=== PATIENT | female | born 1960 | race Caucasian/White ===

== ENCOUNTER → 2017-10-26 | Outpatient (REF) | payer OTHER ==
[2017-10-26 21:07] LABS: LIPASE 490 U/L (73-393)
[2017-10-26 21:07] LABS: AMYLASE 43 U/L (25-115)
== END ==
LOC: M LAB REF 17:54
DX: R10.84 Generalized abdominal pain (principal)
CPT/HCPCS: 82150

== ENCOUNTER 2018-02-27 13:39 | Emergency (ER) | payer OTHER ==
[2018-02-27] MEDS: ONDANSETRON 4MG/2ML VIAL (J2405) IV (15:08)
[2018-02-27] MEDS: LORazepam 2 MG/ML VIAL (J2060) IV (15:09)
[2018-02-27] MEDS: KETOROLAC 30 MG/ML VIAL (J1885) IV (15:09)
== END 2018-02-27 17:07 | disposition home or self-care (01) ==
LOC: M ED 13:39
DX: F41.1 Generalized anxiety disorder (principal); F32.9 Major depressive disorder, single episode, unspecified; F43.10 Post-traumatic stress disorder, unspecified; Z87.820 Personal history of traumatic brain injury; Z88.2 Allergy status to sulfonamides; Z88.5 Allergy status to narcotic agent; Z88.4 Allergy status to anesthetic agent; Z88.8 Allergy status to other drugs, medicaments and biological substances; Z88.0 Allergy status to penicillin
CPT/HCPCS: J2405

== ENCOUNTER → 2018-05-01 | Outpatient (REF) | payer OTHER ==
[2018-05-02 14:12] LABS: LIPASE 145 U/L (73-393)
== END ==
LOC: M LAB REF 12:52
DX: R79.89 Other specified abnormal findings of blood chemistry (principal)
CPT/HCPCS: 83690

== ENCOUNTER 2018-11-19 15:13 | Emergency (ER) | payer MEDICARE, OTHER ==
[~2018-11-19] VITALS: Ht 157.5 cm; Wt 75.0 kg
[2018-11-19] MEDS ORDERED: methylPREDNISolone INJ 125 MG/2 ML VIAL (J2930) IV ONE (15:45)
[2018-11-19] MEDS ORDERED: NS 1,000 ML IV ONE (15:45)
[2018-11-19] MEDS ORDERED: ALBUTEROL SULFATE 2.5 MG/0.5 ML INH NEB SOLN INH ONE (15:45)
[2018-11-19] MEDS ORDERED: IPRATROPIUM 0.5MG/ALBUTEROL 2.5MG INH SOL UD 3ML (DUONEB)(J7620) NEB ONE (15:45)
[2018-11-19 16:12] LABS: BASO # 0.1 10^3/uL (0.0-0.2); BASO % 0.7 % (0.0-1.0); EOS # 0.1 10^3/uL (0.0-0.50); EOS % 0.5 % (0.0-3.0); HEMATOCRIT 43.7 % (36.0-47.0); HEMOGLOBIN 14.8 g/dl (12.0-15.5); LYMPH # 1.7 10^3/uL (1.5-4.5); LYMPH % 14.4 % (24.0-44.0); MEAN CORPUSCULAR HEMOGLOBIN 31.4 pg (27.0-33.0); MEAN CORPUSCULAR HGB CONC 33.9 g/dl (32.0-36.5); MEAN CORPUSCULAR VOLUME 92.6 fl (80.0-96.0); MONO # 0.7 10^3/uL (0.0-0.8); MONO % 6.3 % (0.0-5.0); NEUTROPHILS % 77.7 % (36.0-66.0); PLATELET COUNT, AUTOMATED 237 10^3/uL (150-450); RED BLOOD COUNT 4.72 10^6/uL (4.00-5.40); WHITE BLOOD COUNT 11.6 10^3/uL (4.0-10.0)
--- NOTE | 2018-11-19 16:29 | REP ---
Clinical: Cough and dyspnea . Comparison: 12/06/2007 . Findings: The mediastinum and cardiac silhouette are stable and within normal limits for portable technique. The lung fenton demonstrate mild chronic-appearing basilar changes. Subtle atelectasis cannot definitively be excluded. No focal consolidation. No obvious effusion. No pneumothorax. Skeletal structures are intact. Impression: Mild chronic-appearing basilar changes. Subtle atelectasis cannot be excluded. No focal consolidation or effusion. Electronically Signed by Sony Castaneda MD 11/19/2018 04:22 P
[2018-11-19 16:54] LABS: ALBUMIN 3.9 GM/DL (3.2-5.2); ALT/SGPT 19 U/L (12-78); BILIRUBIN,DIRECT 0.2 MG/DL (0.0-0.2); BILIRUBIN,TOTAL 0.8 MG/DL (0.2-1.0); BLOOD UREA NITROGEN 17 MG/DL (7-18); CALCIUM LEVEL 9.7 MG/DL (8.5-10.1); CARBON DIOXIDE LEVEL 26 MEQ/L (21-32); CHLORIDE LEVEL 102 MEQ/L (98-107); CK-MB VALUE MASS < 1.0 NG/ML (<3.6); CPK CREATINE PHOSPHOKINASE 22 U/L (26-192); CREATININE FOR GFR 1.07 MG/DL (0.55-1.30); GLOMERULAR FILTRATION RATE 56.3 (>51); GLUCOSE, FASTING 92 MG/DL (70-100); MB/CK RELATIVE INDEX 4.55 (< OR =4); NT-PRO BNP 43 PG/ML (<125); POTASSIUM SERUM 3.8 MEQ/L (3.5-5.1); SODIUM LEVEL 137 MEQ/L (136-145); THYROID STIMULATING HORMONE 0.637 uIU/ML (0.358-3.740); THYROXINE (T4) 8.6 UG/DL (4.5-12.0); TOTAL PROTEIN 7.3 GM/DL (6.4-8.2); TROPONIN I < 0.02 NG/ML (< 0.10)
[2018-11-19] MEDS ORDERED: ISOVUE-370 76% 100ML VIAL (Q9967) As Ordered ONE (17:15)
--- NOTE | 2018-11-19 17:46 | REP ---
Clinical: Acute chest pain. Technique: Axial contrast enhanced images from the thoracic inlet to the upper abdomen using 100 ml Isovue 370 intravenous contrast material with coronal and sagittal re-formations. Findings: Satisfactory enhancement of the pulmonary vasculature is achieved and no filling defects are identified to suggest pulmonary embolus. Lung fenton demonstrate mild bibasilar atelectasis (left greater than right). No effusion. No pneumothorax. Tracheobronchial tree is patent. Mediastinum demonstrates normal thoracic aorta and heart/pericardium. No pericardial effusion. No significant adenopathy. Surrounding musculoskeletal structures without focal osseous abnormality. Limited upper abdomen demonstrates normal bilateral adrenal glands and evidence of prior cholecystectomy. Impression: No evidence for pulmonary embolus. Mild bibasilar atelectasis. Electronically Signed by Sony Castaneda MD 11/19/2018 05:36 P
[2018-11-19] MEDS ORDERED: MOXIFLOXACIN 400 MG TAB PO ONE (18:00)
[2018-11-19] MEDS ORDERED: IBUPROFEN 600 MG TAB PO ONE (18:00)
[2018-11-19] MEDS ORDERED: PROAAER10 INH (18:03)
[2018-11-19] MEDS ORDERED: PRED20TA PO (18:03)
[2018-11-19] MEDS ORDERED: MOXI1TAB PO (18:04)
--- NOTE | 2018-11-19 18:12 | REPVR ---
EXAM: US Duplex Left Lower Extremity Veins, Limited EXAM DATE/TIME: 11/19/2018 5:42 PM CLINICAL HISTORY: 58 years old, female; Pain; Leg, upper; Left TECHNIQUE: Imaging protocol: Real-time Duplex ultrasound of the Left Lower Extremity with 2-D munguia scale, color Doppler flow and spectral waveform analysis. Limited exam focused on the left lower extremity veins. COMPARISON: No relevant prior studies available. FINDINGS: Left deep veins: Unremarkable. The common femoral, femoral, popliteal and visualized calf veins are patent without thrombus. Normal compressibility, augmentation response and Doppler waveforms. Left superficial veins: Unremarkable. Saphenofemoral junction is patent without thrombus. Soft tissues: Unremarkable. IMPRESSION: No sonographic evidence of deep vein thrombosis. Electronically signed by: Sigifredo Rosenberg On 11/19/2018 18:12:46 PM
[2018-11-19 18:19] VITALS: BP 112/58
--- NOTE | 2018-11-19 19:48 | ECGEPIP ---
[facility] - ED Test Date: 2018-11-19 Pat Name: CHELSI SOTO Department: Room: - Gender: Female Anesthesia Resident: GONZALO : 1960 Requested By: Shamika Jaramillo Order Number: [id number] Reading MD: Shamika Jaramillo Measurements Intervals [place] Rate: 96 P: 49 MO: 173 QRS: 35 QRSD: 73 T: 33 QT: 323 QTc: 408 Interpretive Statements SINUS RHYTHM POSSIBLE LAE CW 02/27/18 RATE INCREASED Electronically Signed on 11-19-2018 19:48:13 EDT by Shamika Jaramillo
== END 2018-11-19 18:48 | disposition home or self-care (01) ==
LOC: M ED 15:13
DX: J20.9 Acute bronchitis, unspecified (principal); J01.90 Acute sinusitis, unspecified; Z87.820 Personal history of traumatic brain injury; F41.9 Anxiety disorder, unspecified; Z72.0 Tobacco use; Z88.0 Allergy status to penicillin; Z88.8 Allergy status to other drugs, medicaments and biological substances; Z88.5 Allergy status to narcotic agent; Z88.2 Allergy status to sulfonamides
CPT/HCPCS: 71045; 71275; 80048; 80076; 82550; 82553; 83605; 83880; 84436; 84443; 84484; 85025; 87040; 93005; 93041; 93971; 94640; 94760; 96361; 96374; 99285; J2930; Q9967

== ENCOUNTER → 2018-12-05 | Outpatient (REF) | payer MEDICARE ==
[~2018-12-05] MED LIST: MOXI1TAB PO; PRED20TA PO; PROAAER10 INH
[2018-12-07 00:06] LABS: Lyme Disease IgG/IgM Antibodie <0.91 ISR (0.00-0.90); Lyme Disease IgM Ab Quantitati <0.80 index (0.00-0.79)
== END ==
LOC: M LAB REF 13:42
PROVIDERS: ATTEND Nurse Practitioner Family
DX: Z11.59 Encounter for screening for other viral diseases (principal)

== ENCOUNTER → 2019-03-14 | Outpatient (REF) | payer MEDICARE ==
[2019-03-14 19:09] LABS: FREE T4 0.92 NG/DL (0.76-1.46); RHEUMATOID FACTOR QUANT < 10.0 IU/ML (<15.0); TOTAL PROTEIN 7.3 GM/DL (6.4-8.2)
[2019-03-14 19:38] LABS: VITAMIN B12 LEVEL 632 PG/ML
[2019-03-14 19:39] LABS: FOLATE 8.9 NG/ML
[2019-03-14 19:52] LABS: HEMOGLOBIN A1c 5.2 %
[2019-03-15 13:20] LABS: ALBUMIN 4.54 GM/DL (3.29-5.55); ALBUMIN % 62.2 % (55.8-66.1); ALPHA-1-GLOBULIN % 3.7 % (2.9-4.9); ALPHA-1-GLOBULINS 0.27 GM/DL (0.17-0.41); ALPHA-2-GLOBULINS 0.74 GM/DL (0.42-0.99); ALPHA-2-GLOBULINS % 10.1 % (7.1-11.8); BETA-1-GLOBULINS 0.47 GM/DL (0.28-0.60); BETA-1-GLOBULINS % 6.4 % (4.7-7.2); GAMMA GLOBULIN % 11.6 % (11.1-18.8)
[2019-03-15 13:21] LABS: BETA-2-GLOBULINS 0.44 GM/DL (0.19-0.55); GAMMA GLOBULINS 0.85 GM/DL (0.65-1.58)
[2019-03-20 10:15] LABS: DRVV SCREEN 41.6 SEC
[2019-03-21 08:08] LABS: ANTI DOUBLE STRAND-DNA AB 1 IU/mL (0-9); ANTINUCLEAR ANTIBODIES DIRECT Positive (Negative); RNP ANTIBODIES <0.2 AI (0.0-0.9); SJOGREN'S ANTI SS-A <0.2 AI (0.0-0.9); SJOGREN'S ANTI SS-B 1.2 AI (0.0-0.9); SMITH ANTIBODIES <0.2 AI (0.0-0.9); VITAMIN B6,PYRIDOXAL PHOSPHATE 10.1 ug/L (2.0-32.8); VITAMIN E(GAMMA TOCOPHEROL) 1.2 mg/L (0.5-5.5)
== END ==
LOC: M LABNEURO 12:56
PROVIDERS: ATTEND Psychiatry & Neurology Neurology
DX: R42 Dizziness and giddiness (principal); M54.2 Cervicalgia; G43.909 Migraine, unspecified, not intractable, without status migrainosus

== ENCOUNTER → 2020-08-02 | Outpatient (REF) | payer MEDICARE | LOC: M LAB REF 13:18 | PROVIDERS: ATTEND Internal Medicine Gastroenterology | DX: R19.7 Diarrhea, unspecified (principal) ==

== ENCOUNTER → 2021-07-04 | Outpatient (REF) | LOC: M LABSMTC 11:28 | PROVIDERS: ATTEND Pediatrics | DX: Z11.52 Encounter for screening for COVID-19 (principal) ==

== ENCOUNTER → 2021-12-31 | Outpatient (CLI) | payer MEDICARE | LOC: M WHC 10:46 | PROVIDERS: ATTEND Family Medicine | DX: Z12.31 Encounter for screening mammogram for malignant neoplasm of breast (principal); M85.88 Other specified disorders of bone density and structure, other site; M85.851 Other specified disorders of bone density and structure, right thigh; M85.852 Other specified disorders of bone density and structure, left thigh ==

== ENCOUNTER → 2023-08-05 | Outpatient (CLI) | payer MEDICARE | LOC: M WHC 12:35 | PROVIDERS: ATTEND Family Medicine | DX: Z12.31 Encounter for screening mammogram for malignant neoplasm of breast (principal) ==

== ENCOUNTER → 2024-03-13 | Outpatient (CLI) | payer MEDICARE ==
[~2024-03-13] MED LIST changes: +E-Z-GAS II EFFERVESCENT PACKET (SODIUM BICARB./CITRIC ACID/SIMETHICONE) As Ordered ONE; +E-Z-HD 98% w/w 340GM SUSP BTL As Ordered ONE; +E-Z-PAQUE 96% w/w SUSP 176GM BTL As Ordered ONE
== END ==
LOC: M RAD 08:54
PROVIDERS: ATTEND Family Medicine
DX: K21.9 Gastro-esophageal reflux disease without esophagitis (principal)